=== PATIENT | male | born 1995 ===

== ENCOUNTER 2017-10-30 14:03 | Emergency (ER) | payer MEDICAID ==
[2017-10-30 14:24] VITALS: BMI 25.8
[2017-10-30] MEDS ORDERED: Oxycodone/Acetaminophen 5/325 mg Tab PO STA (14:32)
--- NOTE | 2017-10-30 14:39 | ED PDOC ---
Arrival/HPI - General Chief Complaint: Male Genitourinary Time Seen by Provider: 10/30/17 14:31 Historian: Patient - History of Present Illness Narrative History of Present Illness (Text): 10/30/17 14:36 22 y/o male, no significant pmh, nkda, c/o lt. testicular pain on and off x 3 months which he never see an urologist with no fall or trauma. Pt. stated that he has pain, 5/10, no urinary symptoms, no rash, no abdominal pain, no other medical or psychological complaints. Past Medical History - Provider Review Nursing Documentation Reviewed: Yes - Infectious Disease Hx of Infectious Diseases: None - Psychiatric Hx Substance Use: No Family/Social History - Physician Review Nursing Documentation Reviewed: Yes Family/Social History: Unknown Family HX Smoking Status: Never Smoked Hx Alcohol Use: No Hx Substance Use: No Allergies/Home Meds Allergies/Adverse Reactions: Allergies No Known Allergies Allergy (Verified 10/30/17 14:24) Review of Systems - Review of Systems Constitutional: absent: Fatigue, Fevers Eyes: absent: Vision Changes ENT: absent: Hearing Changes Respiratory: absent: SOB, Cough Cardiovascular: absent: Chest Pain Gastrointestinal: absent: Abdominal Pain, Nausea, Vomiting Genitourinary Male: Other (lt. testicular pain). absent: Dysuria, Frequency, Hematuria, Urinary Output Changes Musculoskeletal: absent: Arthralgias, Back Pain Skin: absent: Rash, Pruritis Physical Exam Vital Signs Reviewed: Yes Vital Signs Temp Pulse Resp BP Pulse Ox 10/30/17 14:04 99.2 F 88 18 142/54 L 96 Temperature: Afebrile Blood Pressure: Hypertensive Pulse: Regular Respiratory Rate: Normal Appearance: Positive for: Well-Appearing, Non-Toxic, Comfortable Pain Distress: Moderate Mental Status: Positive for: Alert and Oriented X 3 - Systems Exam Head: Present: Atraumatic, Normocephalic Pupils: Present: PERRL Extroacular Muscles: Present: EOMI Conjunctiva: Present: Normal Mouth: Present: Moist Mucous Membranes Neck: Present: Normal Range of Motion Respiratory/Chest: Present: Clear to Auscultation, Good Air Exchange. No: Respiratory Distress, Accessory Muscle Use Cardiovascular: Present: Regular Rate and Rhythm, Normal S1, S2. No: Murmurs Abdomen: No: Tenderness, Distention, Peritoneal Signs Genitourinary Male: Present: Normal External Genitalia, Circumcised Penis, Other (no testicular abscess or scrotal abscess). No: Lesions, Penile Discharge , Testicle Tenderness, Penile Swelling, Masses, Erythema, Hernias, Testicle Swelling Back: Present: Normal Inspection Upper Extremity: Present: Normal Inspection. No: Cyanosis, Edema Lower Extremity: Present: Normal Inspection. No: Edema Neurological: Present: GCS=15, CN II-XII Intact, Speech Normal, Motor Func Grossly Intact, Gait Normal, Memory Normal Skin: Present: Warm, Dry, Normal Color. No: Rashes Psychiatric: Present: Alert, Oriented x 3, Normal Insight, Normal Concentration Medical Decision Making ED Course and Treatment: 10/30/17 14:40 -labs/ua -testicular sonogram -IV toradol -Observe and reassess 10/30/17 18:26 -Testicular sonogram show Right-sided hydrocele. Both testicles exhibit arterial flow. Small left-sided epididymal cyst-spermatocele. -Labs show no acute findings -UA show no UTI -Pt. stated that he has no urinary symptoms, stated that this is not STD and refused STD testing, refused prophylatic treatment as he only have one single partner and been tested for STI which is negative couple months ago. -Pt. feels much better, request to be discharged home. -Discharge home with motrin, bed rest, avoid strenuous exercise or activity, follow up with your own pmd and urologist within 2 days, return to the ER for any new or worsening signs or symptoms. - Lab Interpretations Lab Results: 10/30/17 15:14 10/30/17 15:14 Lab Results 10/30/17 17:35: Urine Color Yellow, Urine Appearance Clear, Urine pH 6.0, Ur Specific [place] 1.010, Urine Protein Negative, Urine Glucose (UA) Negative, Urine Ketones 15 H, Urine Blood Negative, Urine Nitrate Negative, Urine Bilirubin Negative, Urine Urobilinogen 1.0 H, Ur Leukocyte Esterase Negative 10/30/17 15:14: WBC 5.1, RBC 4.90, Hgb 15.3, Hct 44.0, MCV 89.8, MCH 31.2, MCHC 34.8, RDW 12.3, Plt Count 280, MPV 8.9, Gran % 43.3 L, Lymph % (Auto) 43.2 H, [place] % (Auto) 10.2 H, Eos % (Auto) 2.5, Baso % (Auto) 0.8, Gran # 2.22, Lymph # (Auto) 2.2, [place] # (Auto) 0.5, Eos # (Auto) 0.1, Baso # (Auto) 0.04 10/30/17 15:14: Sodium 145, Potassium 4.2, Chloride 103, Carbon Dioxide 28, Anion Gap 19, BUN 13, Creatinine 0.8, Est GFR ( Amer) > 60, Est GFR (Non- Af Amer) > 60, Random Glucose 94, Calcium 9.8, Total Bilirubin 1.0, AST 24, ALT 26, Alkaline Phosphatase 65, Total Protein 8.2, Albumin 4.8, Globulin 3.3, Albumin/Globulin Ratio 1.5 - RAD Interpretation Radiology Orders: 10/30/17 14:31 TESTES DUPLEX COMPLETE [US] Stat HISTORY: Chronic testicular pain for the past few months TECHNIQUE: Realtime sonography through the scrotum with color and doppler flow. COMPARISON: None Available. FINDINGS: RIGHT TESTICLE: Measures 4.5 x 2.3 x 2.8 cm. Normal echotexture and flow. RIGHT EPIDIDYMIS: Epididymal head measures 8.5 mm x 10.4 mm x 9.0 mm . Grossly unremarkable appearance with normal flow. LEFT TESTICLE: Measures 4.4 x 2.4 x 2.9 cm. Normal echotexture and flow. LEFT EPIDIDYMIS: Epididymal head measures 7 mm x 10.8 mm x 5.9 mm. . There is a small epididymal cyst or spermatocele measuring 3 mm x 2 mm x 2.8 mm. With normal flow. HYDROCELE: Right-sided hydrocele. VARICOCELE: None. OTHER FINDINGS: None. IMPRESSION: Right-sided hydrocele. Both testicles exhibit arterial flow. Small left-sided epididymal cyst-spermatocele. Repulping Supervisor: Radiologist - Medication Orders Current Medication Orders: Discontinued Medications Ketorolac Tromethamine (Toradol) 30 mg IVP STAT STA Stop: 10/30/17 14:33 Last Admin: 10/30/17 15:03 Dose: 30 mg [facility] Pain Assessment Document 10/30/17 15:03 SRE (Rec: 10/30/17 15:04 SRE [id number]) Pain Reassessment Is this a pain reassessment? Yes Sleep Is patient sleeping during reassessment? No Presence of Pain Presence of Pain Yes Pain Scale Used Pain Scale Used Numeric Location Left, Right or Bilateral Left Pain Location Body Site Generalized Description Description Intermittent IVP Administration Document 10/30/17 15:03 SRE (Rec: 10/30/17 15:04 SRE [id number]) Charges for Administration # of IVP Administrations 1 Oxycodone/Acetaminophen (Percocet 5/325 Mg Tab) 1 tab PO STAT STA Stop: 10/30/17 14:33 Last Admin: 10/30/17 15:04 Dose: 1 tab MAR Pain Assessment Document 10/30/17 15:04 SRE (Rec: 10/30/17 15:04 SRE [id number]) Pain Reassessment Is this a pain reassessment? Yes Sleep Is patient sleeping during reassessment? No Presence of Pain Presence of Pain No Pain Scale Used Pain Scale Used Numeric Location Left, Right or Bilateral Left - PA / PSYCHOMETRICIAN / Resident Statement MD/DO has reviewed & agrees with the documentation as recorded. Disposition/Present on Arrival - Present on Arrival Any Indicators Present on Arrival: No History of DVT/PE: No History of Uncontrolled Diabetes: No Urinary Catheter: No History of Decub. Ulcer: No History Surgical Site Infection Following: None - Disposition Have Diagnosis and Disposition been Completed?: Yes Diagnosis: Hydrocele, Cyst of epididymis Disposition: HOME/ ROUTINE Disposition Time: 14:40 Patient Plan: Discharge Condition: IMPROVED Discharge Instructions (ExitCare): Hydrocele/Varicocele (DC) Additional Instructions: -Discharge home with motrin, bed rest, avoid strenuous exercise or activity, follow up with your own pmd and urologist within 2 days, return to the ER for any new or worsening signs or symptoms. Prescriptions: Ibuprofen [Motrin Tab] 600 mg PO QID PRN #30 tab PRN Reason: pain Referrals: Eric Turner, [Primary Care Provider] - Follow up with primary Kushal Bhatt MD [Staff Provider] - Follow up with primary Forms: WORK NOTE
[2017-10-30 15:28] LABS: BASO # 0.04 K/mm3 (0.0-2.0); BASO % 0.8 % (0.0-3.0); EOS # 0.1 (0.0-0.7); EOS % 2.5 % (1.5-5.0); GRAN # 2.22 (1.4-6.5); GRAN % 43.3 % (50.0-68.0); HEMOGLOBIN 15.3 g/dL (14.0-18.0); LYMPH # 2.2 (1.2-3.4); LYMPH % 43.2 % (22.0-35.0); MEAN CELL VOLUME 89.8 fl (80.0-105.0); MEAN CORPUSCULAR HEMOGLOBIN 31.2 pg (25.0-35.0); MEAN CORPUSCULAR HGB CONC 34.8 g/dl (31.0-37.0); MEAN PLATELET VOLUME 8.9 fl (7.0-11.0); MONO # 0.5 (0.1-0.6); MONO % 10.2 % (1.0-6.0); RBC 4.9 10^6/uL (3.5-6.1); RED CELL DISTRIBUTION WIDTH 12.3 % (11.5-14.5); WHITE BLOOD COUNT 5.1 10^3/ul (4.5-11.0)
[2017-10-30 15:32] LABS: ALB/GLOB RATIO 1.5 (1.1-1.8); ALBUMIN 4.8 g/dL (3.0-4.8); ALT/SGPT 26 U/L (7-56); AST/SGOT 24 U/L (17-59); BLOOD UREA NITROGEN 13 mg/dL (7-21); CALCIUM 9.8 mg/dL (8.4-10.5); GFR AFRICAN-AMERICAN > 60; GFR NON-AFRICAN AMERICAN > 60
--- NOTE | 2017-10-30 17:46 | US ---
HISTORY: Chronic testicular pain for the past few months TECHNIQUE: Realtime sonography through the scrotum with color and doppler flow. COMPARISON: None Available. FINDINGS: RIGHT TESTICLE: Measures 4.5 x 2.3 x 2.8 cm. Normal echotexture and flow. RIGHT EPIDIDYMIS: Epididymal head measures 8.5 mm x 10.4 mm x 9.0 mm . Grossly unremarkable appearance with normal flow. LEFT TESTICLE: Measures 4.4 x 2.4 x 2.9 cm. Normal echotexture and flow. LEFT EPIDIDYMIS: Epididymal head measures 7 mm x 10.8 mm x 5.9 mm. . There is a small epididymal cyst or spermatocele measuring 3 mm x 2 mm x 2.8 mm. With normal flow. HYDROCELE: Right-sided hydrocele. VARICOCELE: None. OTHER FINDINGS: None. IMPRESSION: Right-sided hydrocele. Both testicles exhibit arterial flow. Small left-sided epididymal cyst-spermatocele.
[2017-10-30 17:58] LABS: URINE BILIRUBIN NEGATIVE (NEGATIVE); URINE BLOOD NEGATIVE (NEGATIVE); URINE GLUCOSE (UA) NEGATIVE (NEGATIVE); URINE LEUKOCYTE ESTERASE NEGATIVE Leu/uL (NEGATIVE); URINE PROTEIN NEGATIVE mg/dL (<30 mg/dL)
[2017-10-30 18:03] LABS: URINE APPEARANCE CLEAR (CLEAR); URINE COLOR YELLOW (YELLOW)
[2017-10-30 18:41] VITALS: BP 126/66; PULSE 78; TEMP 98.6; O2SAT 98
[2017-10-30 18:43] VITALS: RESP 18
== END 2017-10-30 18:43 | disposition home or self-care (01) ==
LOC: ED 14:03
DX: N43.3 Hydrocele, unspecified (principal); N50.3 Cyst of epididymis
CPT/HCPCS: 80053; 81003; 85025; 93975; 96374; 99284; J1885